=== PATIENT | male | born 1995 | race African-American/Black ===

== ENCOUNTER 2017-07-20 17:01 | Emergency (ER) | payer OTHER ==
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
[2017-07-20] MEDS ORDERED: Lidocaine 1% 5ml(IM or SUTURE)(PAIN CLINIC) ONE (18:10)
[2017-07-20] MEDS ORDERED: AZITHROMYCIN 250 MG TABLET PO ONE (18:11)
[2017-07-20] MEDS: Lidocaine 1% 5ml(IM or SUTURE)(PAIN CLINIC) IJ ONE (18:27)
[2017-07-20] MEDS: AZITHROMYCIN 250 MG TABLET PO SCH (18:27)
[2017-07-20 18:39] VITALS: BP 120/66
== END 2017-07-20 18:30 | disposition home or self-care (01) ==
LOC: ED 17:01
DX: Z04.41 Encounter for examination and observation following alleged adult rape (principal)
CPT/HCPCS: 96372; 99283; J0696